=== PATIENT | female | born 2005 | race Caucasian/White ===

== ENCOUNTER 2025-05-29 21:19 | Emergency (ER) | payer BC | END 2025-05-29 23:36 | disposition home or self-care (01) | LOC: CSHERS 21:19 | DX: L03.125 Acute lymphangitis of right lower limb (principal); S90.861A Insect bite (nonvenomous), right foot, initial encounter; F17.290 Nicotine dependence, other tobacco product, uncomplicated; Z55.6 Problems related to health literacy; W57.XXXA Bitten or stung by nonvenomous insect and other nonvenomous arthropods, initial encounter | CPT/HCPCS: 99282 ==